=== PATIENT | male | born 1955 | race Caucasian/White ===

== ENCOUNTER 2016-09-18 13:30 | Outpatient (CLI) | payer OTHER | END 2016-09-18 13:31 | disposition home or self-care (01) | LOC: RT.S 13:30 | PROVIDERS: ATTEND Physician Assistant | DX: R06.00 Dyspnea, unspecified (principal) | CPT/HCPCS: 93005 ==

== ENCOUNTER 2016-09-19 08:38 | Outpatient (CLI) | payer OTHER ==
[2016-09-19 11:52] LABS: BASOPHILS % (AUTO) 0.9 %; EOSINOPHILS # (AUTO) 0.1 10^3/uL (0.0-0.7); EOSINOPHILS % (AUTO) 2.5 %; HCT - HEMATOCRIT 43.5 % (42.0-52.0); HGB - HEMOGLOBIN 14.8 g/dL (14.0-18.0); LYMPHOCYTES # (AUTO) 1.5 10^3/uL (1.5-3.5); LYMPHOCYTES % (AUTO) 30.8 %; MEAN CORPUSCULAR HEMOGLOBIN 31.1 pg (27.0-31.0); MEAN CORPUSCULAR VOLUME 91.3 fL (80.0-94.0); MEAN PLATELET VOLUME 10.6 fL (7.4-11.4); MONOCYTES # (AUTO) 0.4 10^3/uL (0.0-1.0); MONOCYTES % (AUTO) 7.5 %; NEUTROPHILS # (AUTO) 2.9 10^3/uL (1.5-6.6); NEUTROPHILS % (AUTO) 58.3 %; RED BLOOD COUNT 4.76 10^6/uL (4.70-6.10); UNCORRECTED WHITE BLOOD COUNT 4.9 x10^3/uL; WHITE BLOOD COUNT 4.9 x10^3/uL (4.8-10.8)
[2016-09-19 12:38] LABS: HEMOGLOBIN A1C 0.66 g/dL
[2016-09-19 12:51] LABS: ALBUMIN/GLOBULIN RATIO 1.4 (1.0-2.2); BILIRUBIN,TOTAL 0.8 mg/dL (0.2-1.0); BUN - BLOOD UREA NITROGEN 17 mg/dL (6-20); CARBON DIOXIDE - CO2 25 mmol/L (21-32); CHLORIDE 103 mmol/L (101-111); CHOL/HDL RATIO 4.4 (<5.0); CHOLESTEROL 203 mg/dL; GFR - MDRD 76 (>89); GLUCOSE 122 mg/dL (70-100); HDL CHOLESTEROL 46 mg/dL; LDL/HDL RATIO 2.9 (<3.6); POTASSIUM 4.2 mmol/L (3.5-5.0); SODIUM 136 mmol/L (135-145); TOTAL PROTEIN 7.5 g/dL (6.7-8.2); TRIGLYCERIDES 114 mg/dL; VLDL CHOLESTEROL 23 mg/dL
== END 2016-09-19 08:39 | disposition home or self-care (01) ==
LOC: LAB.F 08:38
PROVIDERS: ATTEND Physician Assistant
DX: Z80.42 Family history of malignant neoplasm of prostate (principal); R53.83 Other fatigue; Z12.5 Encounter for screening for malignant neoplasm of prostate
CPT/HCPCS: 36415; 80053; 80061; 83036; 84153; 84443; 85025

== ENCOUNTER 2018-01-07 10:28 | Day surgery (SDC) | payer BC ==
[2018-01-07] MEDS ORDERED: LACTATED RINGERS 1,000 ML IV ONE (10:50)
[2018-01-07] MEDS ORDERED: fentaNYL 250 MCG/5 ML VIAL IVP ONE (11:49)
[2018-01-07] MEDS ORDERED: MIDAZOLAM 2 MG/2 ML VIAL IVP ONE (11:49)
[2018-01-07 12:51] VITALS: BP 127/87
== END 2018-01-07 10:29 | disposition home or self-care (01) ==
LOC: SDS 10:28
PROVIDERS: ATTEND Surgery
PROC: 0DBP8ZZ Excision of Rectum, Via Natural or Artificial Opening Endoscopic (ICD-10-PCS; 2018-01-07)
PROC: 0DBL8ZZ Excision of Transverse Colon, Via Natural or Artificial Opening Endoscopic (ICD-10-PCS; principal; 2018-01-07 11:30)
DX: Z12.11 Encounter for screening for malignant neoplasm of colon (principal); D12.3 Benign neoplasm of transverse colon; K62.1 Rectal polyp; K57.30 Diverticulosis of large intestine without perforation or abscess without bleeding; K64.8 Other hemorrhoids; Z80.0 Family history of malignant neoplasm of digestive organs
CPT/HCPCS: 45380; J3010; J7120

== ENCOUNTER 2018-04-04 15:43 | Outpatient (CLI) | payer BC ==
[2018-04-04] MEDS ORDERED: IOVERSOL 320 100 ML VIAL IVP ONE ×2 (15:53→16:45)
[2018-04-04 16:13] LABS: CREATININE 1.1 mg/dL (0.6-1.2)
--- NOTE | 2018-04-04 18:00 | CT Report ---
Reason: LOCALIZED SWELLING, MASS, AND LUMP NECK Procedure Date: 04/04/2018 Accession Number: [id number] / [id number] Procedure: CT - Neck Soft Tissue W/ CPT Code: FULL RESULT: EXAM: CT SOFT TISSUE NECK WITH CONTRAST. EXAM DATE: 04/04/2018 04:43 PM. HISTORY: 63-year-old with left neck swelling. Evaluate for neck pathology. COMPARISONS: None. TECHNIQUE: Routine soft tissue neck CT protocol. Reconstructions: Coronal and sagittal. IV contrast: 80 ML OPTIRAY 320. In accordance with CT protocol optimization, one or more of the following dose reduction techniques were utilized for this exam: automated exposure control, adjustment of mA and/or KV based on patient size, or use of iterative reconstructive technique. FINDINGS: Dental amalgam streak artifact technically limits evaluation of the oral cavity, oropharynx, and surrounding soft tissues. Visualized Intracranial Contents: Unremarkable. Orbits: Symmetric and unremarkable. Sinuses: Small left maxillary mucosal retention cyst versus polyp. Mastoid air cells and middle ear cavities appear clear. Oral cavity: The visualized floor of mouth appears normal. The intrinsic muscles of the tongue appear normal. There are prominent lingual tonsils seen with punctate calcifications seen within the tonsillar crypts of the left lingual tonsil. Glossotonsillar sulci appear preserved. There is a periapical lucency seen associated with the left last mandibular molar. Pharynx : Pharyngeal mucosa is unremarkable. The infratemporal fossa, parapharyngeal spaces, and retropharyngeal space are unremarkable. The base of the tongue is symmetric and unremarkable. The airway is patent. Larynx: Larynx and supraglottic airway are patent without mass lesion. Vocal cords are symmetric. The visualized trachea is unremarkable. Parotid and Submandibular Glands: Symmetric and unremarkable. Lymph Nodes: There are prominent left-sided cervical chain lymph nodes seen includin. Left level 1A measuring up to 13 mm in short axis dimension (series 3, image 68). 2. Left level 2A measuring 14 mm in short axis dimension (series 3, image 65). Soft tissues: A BB marker is seen overlying the anterior lateral left neck. Underneath the BB marker is thickened left platysma muscle and prominent cervical lymph nodes. There is thickening of the left platysma muscle with soft tissue stranding seen within the left submandibular space and within the subcutaneous tissues of the anterior left neck. No mass lesion or abnormal enhancement. Vascular Structures: Unremarkable. Thyroid Gland: Normal. Lung: The visualized lung apices are clear. Bones: No evidence of acute fracture or malalignment. There are mild degenerative changes. Other: None. IMPRESSION: 1. Prominent left-sided cervical chain lymph nodes seen with minimal surrounding inflammatory stranding. Finding may represent lymphadenitis. 2. There is minimal to mild volume inflammatory stranding seen within the left submandibular space extending across the left platysma muscle to involve the anterior left neck. Finding may represent cellulitis. No rim-enhancing fluid collection seen. [facility]
== END 2018-04-04 15:44 | disposition home or self-care (01) ==
LOC: DI 15:43
PROVIDERS: ATTEND Nurse Practitioner Family
DX: R59.0 Localized enlarged lymph nodes (principal)
CPT/HCPCS: 36415; 70491; 82565; Q9967

== ENCOUNTER 2020-02-04 07:16 | Day surgery (SDC) | payer BC ==
[2020-02-04] MEDS ORDERED: MIDAZOLAM 2 MG/2 ML VIAL IVP ONE (07:17)
[2020-02-04] MEDS ORDERED: fentaNYL 250 MCG/5 ML VIAL IVP ONE (07:17)
[2020-02-04] MEDS: LACTATED RINGERS 1,000 ML IV ONE (08:47)
[2020-02-04 09:22] VITALS: BP 119/85
== END 2020-02-04 07:17 | disposition home or self-care (01) ==
LOC: SDS 07:16
PROVIDERS: ATTEND Surgery
PROC: 0DBP8ZZ Excision of Rectum, Via Natural or Artificial Opening Endoscopic (ICD-10-PCS; principal; 2020-02-04 08:15)
DX: Z12.11 Encounter for screening for malignant neoplasm of colon (principal); K62.1 Rectal polyp; K57.30 Diverticulosis of large intestine without perforation or abscess without bleeding; K64.8 Other hemorrhoids; Z80.0 Family history of malignant neoplasm of digestive organs; Z85.89 Personal history of malignant neoplasm of other organs and systems
CPT/HCPCS: 45380; J3010; J7120